=== PATIENT | male | born 1985 | race Two or more races ===

== ENCOUNTER 2018-11-01 19:56 | Emergency (ER) | payer OTHER ==
[2018-11-01 20:05] VITALS: BP 124/77
[2018-11-01] MEDS ORDERED: Albuterol/Ipratropium NEB.SOL* Albuterol 2.5 MG/Ipratropium 0.5 MG 3 ML INH ONE (20:27)
--- NOTE | 2018-11-01 20:27 | UC ---
Respiratory Complaint HPI - HPI Summary HPI Summary: 3 days of fever body aches and URI symptoms---son was home from school with similar symptoms---patient also ran out of [facility] and is experiencing head aches and dizziness - History of Current Complaint Chief Complaint: UCGeneralIllness Stated Complaint: COUGH,DIZZY Time Seen by Provider: 11/01/18 20:16 Hx Obtained From: Patient Onset/Duration: Sudden Onset, Lasting Days - 3, Still Present Timing: Constant Pain Intensity: 7 Pain Scale Used: 0-10 Numeric Character: Cough: Nonproductive Aggravating Factors: Nothing Alleviating Factors: Nothing Associated Signs And Symptoms: Positive: Fever, Chills, URI, Nasal Congestion - Allergies/Home Medications Allergies/Adverse Reactions: Allergies Allergy/AdvReac Type Severity Reaction Status Date / Time No Known Allergies Allergy Verified 11/01/18 20:05 PMH/Surg Hx/FS Hx/Imm Hx Previously Healthy: Yes Psychological History: Depression - Surgical History Surgical History: Yes Surgery Procedure, Year, and Place: APPENDECTOMY. CHOLECYSTECTOMY - Family History Known Family History: Positive: None - Social History Occupation: Student Lives: With Family Alcohol Use: Occasionally Substance Use Type: None Smoking Status (MU): Never Smoked Tobacco Review of Systems All Other Systems Reviewed And Are Negative: Yes Constitutional: Positive: Fever, Chills, Fatigue Skin: Positive: Negative Eyes: Positive: Negative ENT: Positive: Sore Throat, Ear Ache, Nasal Discharge, Sinus Congestion Respiratory: Positive: Cough Cardiovascular: Positive: Negative Gastrointestinal: Positive: Negative Genitourinary: Positive: Negative Motor: Positive: Negative Neurovascular: Positive: Negative Musculoskeletal: Positive: Arthralgia, Myalgia Neurological: Positive: Headache Psychological: Positive: Negative Is Patient Immunocompromised?: No Physical Exam Triage Information Reviewed: Yes Appearance: No Pain Distress, Well-Nourished, Ill-Appearing - mild Vital Signs: Initial Vital Signs Temp 97.3 F 11/01/18 20:00 Pulse 63 11/01/18 20:00 Resp 18 11/01/18 20:00 BP 124/77 11/01/18 20:00 Pulse Ox 99 11/01/18 20:00 Vital Signs Reviewed: Yes Eye Exam: Normal Eyes: Positive: Conjunctiva Clear ENT Exam: Normal ENT: Positive: Normal ENT inspection, Hearing grossly normal, Pharynx normal, Nasal congestion, TMs normal, Uvula midline. Negative: Trismus, Muffled voice, Hoarse voice, Dental tenderness, Sinus tenderness Dental Exam: Normal Neck exam: Normal Neck: Positive: Supple, Nontender, No Lymphadenopathy Respiratory Exam: Other Respiratory: Positive: Chest non-tender, No respiratory distress, No accessory muscle use, Other: - chest tight Cardiovascular Exam: Normal Cardiovascular: Positive: RRR, No Murmur, Pulses Normal, Brisk Capillary Refill Musculoskeletal Exam: Normal Musculoskeletal: Positive: Strength Intact, ROM Intact, No Edema Neurological Exam: Normal Neurological: Positive: Alert, Muscle Tone Normal Psychological Exam: Normal Skin Exam: Normal Respiratory Course/Dx - Course Course Of Treatment: will reorder cymbalta, dispense albuterol with aerochamber, otc medications for symptoms relief follow at [facility] - Differential Dx/Diagnosis Provider Diagnosis: URI (upper respiratory infection), Bronchospasm, Medication refill Discharge - Sign-Out/Discharge Documenting (check all that apply): Patient Departure All imaging exams completed and their final reports reviewed: No Studies - Discharge Plan Condition: Stable Disposition: HOME Prescriptions: DULoxetine DR BAKER* [Cymbalta CAP*] 60 mg PO DAILY #30 cap. Patient Education Materials: Upper Respiratory Infection (ED), How to Use a Metered-Dose Inhaler and a Spacer (ED) Referrals: [facility] [Outside] - 1 Week - Billing Disposition and Condition Condition: STABLE Disposition: Home
[2018-11-01 20:53] LABS: Influenza A Molecular NEGATIVE (Negative); Influenza B Molecular NEGATIVE (Negative)
[2018-11-01] MEDS ORDERED: Albuterol HFA INHALER* 8 gm MDI INH ONE (21:05)
== END 2018-11-01 21:25 | disposition home or self-care (01) ==
LOC: UCEAST 19:56
DX: J06.9 Acute upper respiratory infection, unspecified (principal); J98.01 Acute bronchospasm; F32.9 Major depressive disorder, single episode, unspecified; Z76.0 Encounter for issue of repeat prescription
CPT/HCPCS: 99213; A9270-GY; G0463

== ENCOUNTER 2019-04-24 19:21 | Emergency (ER) | payer OTHER ==
[2019-04-24] MEDS ORDERED: Tetan/Diph/Pertus SYR(Tdap)* 0.5 ML SYR(BOOSTRIX) use SYR contains LATEX IM ONE (19:24)
--- NOTE | 2019-04-24 19:33 | UC ---
Laceration HPI - HPI Summary HPI Summary: 34 yo male presents with LEFT thumb laceration. He tells me that [employer]min [employer] he was slicing an apple and the knife slipped and he sustained a laceration to the dorsal aspect of his left thumb MCP. Bandaged the area and came to . Unsure the date of his last tetanus. - History Of Current Complaint Stated Complaint: HAND LACERATION Time Seen by Provider: 04/24/19 19:33 Hx Obtained From: Patient Laceration Location: Finger Mechanism Of Injury: Sharp Trauma Onset/Duration: Sudden Onset Severity: Mild Pain Intensity: 2 Pain Scale Used: 0-10 Numeric - Allergies/Home Medications Allergies/Adverse Reactions: Allergies Allergy/AdvReac Type Severity Reaction Status Date / Time No Known Allergies Allergy Verified 04/24/19 19:46 Home Medications: Home Medications [place]-3 Fatty Acids/Fish Oil [[place] 3 1,000 mg Softgel] 1 tab PO DAILY 04/24/19 [History Confirmed 04/24/19] PMH/Surg Hx/FS Hx/Imm Hx Psychological History: Anxiety, Depression - Surgical History Surgical History: Yes Surgery Procedure, Year, and Place: APPENDECTOMY. CHOLECYSTECTOMY - Family History Known Family History: Positive: None - Social History Lives: With Family Alcohol Use: Occasionally Substance Use Type: None Smoking Status (MU): Never Smoked Tobacco Review of Systems All Other Systems Reviewed And Are Negative: No Constitutional: Positive: Negative Skin: Positive: Other - Left thumb laceration Respiratory: Positive: Negative Cardiovascular: Positive: Negative Musculoskeletal: Positive: Negative Neurological: Positive: Negative Psychological: Positive: Negative Physical Exam - Summary Physical Exam Summary: GENERAL: NAD. WDWN. No pain distress. SKIN: LEFT THUMB: Dorsal aspect overlying the MCP there is a linear 2.0cm laceration partially through the dermis. No tendon involvement. CHEST: No accessory muscle use. Breathing comfortably and in no distress. CV: Pulses intact. Cap refill <2seconds MSK: FROM and strength intact at left thumb. NEURO: Alert. PSYCH: Age appropriate behavior. Triage Information Reviewed: Yes Vital Signs: Vital Signs: Temp Pulse Resp BP Pulse Ox 98 F 72 17 134/75 98 04/24/19 19:38 04/24/19 19:38 04/24/19 19:38 04/24/19 19:38 04/24/19 19:38 Vital Signs Reviewed: Yes Laceration Repair - Laceration Repair 1 Description: Linear Laceration Size After Repair: Length (cm) - 2.0 Anesthesia Used: 2.0% Lido Closure Material: Sutures - #5 Closure Method: Single Layer Suture Of: Skin Suture Type: Prolene - 5-0 Laceration Course/Dx - Course/Dx Course Of Treatment: The procedure was explained to the pt and all questions were answered. A time out was performed, witnessed, and signed. The area was irrigated with 100mL sterile saline. 1mL of 2% lidocaine without epi was administered and good anesthetization was achieved. In the usual sterile fashion, FIVE 5-0 prolene interrupted sutures were placed. Homeostasis achieved. The wound was bandaged with telfa . Pt tolerated procedure well. tdap updated today - Diagnosis Provider Diagnosis: Finger laceration Discharge ED - Sign-Out/Discharge Documenting (check all that apply): Patient Departure All imaging exams completed and their final reports reviewed: No Studies - Discharge Plan Condition: Stable Disposition: HOME Patient Education Materials: Care For Your Stitches (ED), Laceration (ED) Referrals: No Primary Care Phys,NOPCP [Primary Care Provider] - Additional Instructions: If you develop a fever, shortness of breath, chest pain, new or worsening symptoms - please call your PCP or go to the ED immediately. 1) Please keep the area bandage, clean, dry, and intact for the next 24 hours. Then change the bandage daily until sutures are removed. 2) If you develop a fever, colored or thick discharge, increased pain or swelling - please call your PCP or return for a wound check. 3) Please return in 10-12 days to have your FIVE sutures removed. - Billing Disposition and Condition Condition: STABLE Disposition: Home
[2019-04-24] MEDS ORDERED: Lidocaine 2% PF * 5 ML VIAL INJ ONE (19:37)
[2019-04-24 19:46] VITALS: BP 134/75
== END 2019-04-24 20:20 | disposition home or self-care (01) ==
LOC: UCEAST 19:21
DX: S61.012A Laceration without foreign body of left thumb without damage to nail, initial encounter (principal); W26.0XXA Contact with knife, initial encounter; Y93.89 Activity, other specified; Y92.9 Unspecified place or not applicable
CPT/HCPCS: 12001; 90715; 99211; G0463